=== PATIENT | female | born 1995 | race African-American/Black ===

== ENCOUNTER 2020-05-04 13:35 | Observation (INO) ==
[2020-05-04 15:07] VITALS: BP 97/75
[2020-05-04] MEDS ORDERED: ALUM/MAG/SIMETH/LIDO VISC 1:1 30 ML BOTTLE PO ONE (15:54)
== END 2020-05-04 16:51 | disposition home or self-care (01) ==
LOC: N.ED 13:35 → N.LD 13:35 → N.EDINP 13:35 → N.LD 15:15
PROVIDERS: ADMIT Specialist; ATTEND Obstetrics & Gynecology